=== PATIENT | female | born 1980 | race Caucasian/White ===

== ENCOUNTER → 2016-03-18 | Outpatient (CLI) | payer BC ==
[~2016-03-18] MED LIST: PRENTAB26 PO
[2016-03-18 09:40] LABS: BASO % 0.1 %; BASO ABS # 0.01 K/uL (0-0.2); COMPLETE YES; EOS % 0.6 %; HEMATOCRIT 36.5 % (37-47); IG% 0.1 %; LYMPH % 23.3 %; LYMPH ABS # 1.68 K/uL (1.2-3.4); MEAN CELL VOLUME 91.9 fL (80-100); MEAN CORPUSCULAR HEMOGLOBIN 31.5 pg (25-34); MEAN CORPUSCULAR HGB CONC 34.2 g/dl (32-36); MEAN PLATELET VOLUME 10.6 fL (7.4-10.4); MONO % 3.3 %; NEUT % 72.6 %; PLATELET COUNT 182 K/uL (130-400); RED BLOOD COUNT 3.97 M/uL (4.2-5.4)
[2016-03-18 10:08] LABS: GTGD 50 Grams
[2016-03-21 10:26] LABS: AFP CONCENTRATION 66.8 NG/ML; AFP MULTIPLE OF MEDIAN 1.06; AFPTS GESTATIONAL AGE 19.7 WEEKS; AFPTS INSULIN DEP DIABETIC? NO; AFPTS MATERNAL WT 120 LBS; ALPHA-FETOPROTEIN RACE CAUCASIAN=W; EDD DETERMINED BY ULTRASOUND; HISTORY OF NTD NO; INHIBIN A 86 PG/ML; INHIBIN A MOM 0.42; REPEAT SAMPLE? NO; hCG MULTIPLE OF MEDIAN 0.81
== END | disposition home or self-care (01) ==
LOC: C.LAB 07:45
PROVIDERS: ATTEND Obstetrics & Gynecology
DX: Z34.82 Encounter for supervision of other normal pregnancy, second trimester (principal)

== ENCOUNTER 2016-07-28 20:12 | Inpatient (IN) | payer BC ==
[~2016-07-28] VITALS: Ht 157.5 cm; Wt 65.5 kg
[2016-07-28] MEDS ORDERED: PRENTAB26 PO (20:48)
[2016-07-28 20:49] VITALS: Ht 157.5 cm; Wt 65.5 kg
[2016-07-28 21:47] LABS: HEMATOCRIT 37.7 % (37-47); MEAN CELL VOLUME 92.4 fL (80-100); MEAN CORPUSCULAR HEMOGLOBIN 30.9 pg (25-34); MEAN CORPUSCULAR HGB CONC 33.4 g/dl (32-36); MEAN PLATELET VOLUME 11.9 fL (7.4-10.4); PLATELET COUNT 166 K/uL (130-400); RED BLOOD COUNT 4.08 M/uL (4.2-5.4); WHITE BLOOD COUNT 7.55 K/uL (4.8-10.8)
[2016-07-28] MEDS ORDERED: LACTATED RINGER'S 1000ML 1,000 ML IV PRN (22:15)
[2016-07-28] MEDS ORDERED: LACTATED RINGER'S 1000ML 1,000 ML IV SCH (22:15)
[2016-07-28] MEDS ORDERED: NURSING VERBAL MED ORDER ONE (22:15)
[2016-07-29] MEDS ORDERED: BUPIVACAINE 0.25% 30 ML VIAL ONE (04:26)
[2016-07-29] MEDS ORDERED: EpHEDrine SULFATE INJ 50 MG/ML AMP ONE (04:26)
[2016-07-29] MEDS ORDERED: FENTANYL CITRATE INJ 50 MCG/1 ML 2 ML VIAL ONE (04:27)
[2016-07-29] MEDS ORDERED: FENTANYL 2MCG/ML ROPIV 1.25MG/ML 100ML BAG EPI ONE (04:27)
[2016-07-29] MEDS ORDERED: LACTATED RINGER'S 1000ML 500 ML IV PRN ×2 (05:09→05:27)
[2016-07-29] MEDS ORDERED: NALOXONE HCL INJ 1 MG in SODIUM CHLORIDE 0.9% 1000ML 1,000 ML IV PRN (05:09)
[2016-07-29] MEDS ORDERED: DiphenhydrAMINE HCL 50 MG/ML VIAL IV PRN (05:15)
[2016-07-29] MEDS ORDERED: ONDANSETRON INJ 2 MG/ML 2 ML VIAL IV PRN (05:15)
[2016-07-29] MEDS ORDERED: NALOXONE HCL INJ 0.4 MG/1 ML VIAL/CARP IV PRN (05:15)
[2016-07-29] MEDS ORDERED: EpHEDrine SULFATE INJ 50 MG/ML AMP IV PRN (05:15)
[2016-07-29] MEDS ORDERED: NALBUPHINE HCL INJ 10 MG/ML AMP IV PRN (05:15)
[2016-07-29] MEDS: FENTANYL 2MCG/ML ROPIV 1.25MG/ML 100ML BAG EPI PRN ×2 (05:30→06:59)
[2016-07-29] MEDS ORDERED: OXYTOCIN 30 UNITS/500ML NSS IV PRN ×2 (05:30→10:00)
[2016-07-29] MEDS ORDERED: LANOLIN OINT EXT PRN ×2 (10:00)
[2016-07-29] MEDS ORDERED: BENZOCAINE 20% AER SPR 82.5 GM CAN EXT PRN (10:00)
[2016-07-29] MEDS ORDERED: ACETAMINOPHEN 325 MG TAB PO PRN (10:00)
[2016-07-29] MEDS ORDERED: DIPHTHERIA/TETANUS/PERTUSSIS 0.5 ML SYR/VIAL IM. ONE (10:00)
[2016-07-29] MEDS ORDERED: HYDROCORTISONE ACETATE 25 MG SUPP PR PRN (10:00)
[2016-07-29] MEDS ORDERED: SUPERCREAM 0.870 % 15GM JAR EXT PRN (10:00)
[2016-07-29] MEDS ORDERED: ACETAMINOPHEN/CODEINE 300/30MG TAB PO PRN (10:00)
[2016-07-29] MEDS ORDERED: OXYCODONE/ACETAMINOPHEN 5-325 TAB PO PRN (10:00)
--- NOTE | 2016-07-29 10:15 | DELIVERY SUMMARY ---
DATE OF OPERATION: 07/29/2016 DATE OF DELIVERY: 07/29/2016. Mrs. Palencia is a 35-year-old 4, para 3 with one early spontaneous AB. Her general health is good. Blood type is B positive. Rubella immune. Vaginal beta strep negative. Due date 08/07/2016. She called the day prior to admission stating she thought she was in labor. She was having infrequent contractions, small bloody show and thought she might have been leaking fluid. She was told to come to the hospital where an AmniSure showed positive for leakage of fluid. She was then placed on the monitor; she walked around for a while. Contractions started to become harder. She requested no labor stimulation and in fact did go into labor on her own. Then she eventually went to epidural anesthesia. After the epidural anesthesia we augmented her contractions with Pitocin. She developed a good labor pattern and pushed out a live female infant via direct occiput anterior position over an intact perineum. Infant was suctioned through the mouth and the nose. Body was delivered without difficulty. Cord was clamped. Cord blood was taken. With IV Pitocin running, the placenta was removed intact and then a first degree laceration was repaired with 2-0 Vicryl. Vaginal mucosa was approximated out and to beyond the hymenal ring with 2-0 Vicryl. A deep suture of 2-0 Vicryl was used to approximate the bulbocavernosus muscles, 3 interrupted sutures used to approximate the perineal body and then a running subcuticular suture was used to approximate the perineal skin edges. Following this, vaginal exam including rectovaginal examination revealed no hematoma formation or stitches through the vagina. Estimated blood loss was 200 mL. The 1 and 5 minute Apgars were 8 and 9 respectively. I attest to the content of the Intraoperative Record and any orders documented therein. Any exception s are noted below.
[2016-07-29] MEDS: IBUPROFEN 600 MG TAB PO PRN ×4 (11:29→23:26)
[2016-07-29 12:35] VITALS: BP_SYST 114; BP_SYST 115; BP_DIAS 57; BP_DIAS 74; PULSE 73; PULSE 90; TEMP 36.5; O2SAT 97
[2016-07-29 15:15] VITALS: BP 108/69; PULSE 68; TEMP 36.5
[2016-07-29 19:10] VITALS: BP 119/72; PULSE 79; TEMP 36.3
[2016-07-29] MEDS: DOCUSATE SODIUM 100 MG CAP PO SCH (19:18)
[2016-07-29 23:40] VITALS: BP 99/62; PULSE 60; TEMP 36.4
[2016-07-30] MEDS: ACETAMINOPHEN/CODEINE 300/30MG TAB PO PRN ×3 (01:18→10:58)
[2016-07-30 07:15] VITALS: BP 92/58; PULSE 81; TEMP 36.7
[2016-07-30] MEDS ORDERED: PRENATAL VITAMIN TAB PO SCH (08:00)
[2016-07-30] MEDS ORDERED: FERROUS SULFATE 325 MG TAB PO SCH (08:00)
[2016-07-30] MEDS: DOCUSATE SODIUM 100 MG CAP PO SCH (08:48)
--- NOTE | 2016-07-30 09:57 | Progress Note ---
Subjective Jul 30, 2016. Subjective conversation w/ patient Ambulation: ambulating normally Voiding: no voiding problems Passing Gas: Yes Diet Tolerance: Regular Diet Lochia: Small Feeding Type: Breast Feeding Review of Systems Constitutional: + fever Objective Vital Signs Date Time Temp Pulse Resp B/P (MAP) Pulse Ox O2 Delivery O2 Flow Rate FiO2 07/30/16 07:15 Room Air 07/30/16 07:15 36.7 81 18 92/58 (69) Room Air 07/29/16 23:40 36.4 60 18 99/62 (74) Room Air 07/29/16 23:40 Room Air 07/29/16 19:10 36.3 79 16 119/72 (88) Room Air 07/29/16 15:15 Room Air 07/29/16 15:15 36.5 68 16 108/69 (82) Room Air 07/29/16 12:35 36.5 73 18 115/74 (88) 97 Room Air 07/29/16 12:35 97 Room Air 07/29/16 12:35 36.5 90 20 114/57 Physical Exam General Appearance: WELL-APPEARING Respiratory/Chest: lungs clear Abdomen: non tender Fundus: Firm, Non-Tender Extremities: no pedal edema, no calf tenderness Laboratory Results Last 24 Hours Test 07/30/16 07:10 Hemoglobin 12.2 g/dL Hematocrit 36.0 % Assessment and Plan Post- Day#: 1
--- NOTE | 2016-07-30 09:59 | Discharge Instructions ---
Discharge Instructions Date of Service Jul 30, 2016. Admission Reason for Admission: Check Ruptured Membranes Discharge Discharge Diagnosis / Problem: ruptured membranes term Discharge Goals Goal(s): Routine recovery after delivery Activity Recommendations Activity Limitations: as noted below ACTIVITY RECOMMENDATIONS: * Gradual return to full activity over the next 2-3 weeks. * No lifting - nothing heavier than baby over the next 2-3 weeks. * Do not engage in vigorous exercise, sexual activity or sports until cleared by your physician. * Do not drive or operate any motorized equipment until cleared by your physician. * You may shower/bathe daily. DIET: Resume Previous Diet If Breast-feeding: * Increase caloric intake by 500 calories, eat 3 well balanced meals, 2 high protein snacks a day and drink 6-8 8oz. glasses of fluid per day. BREAST CARE: If you are not breast feeding: * Wear a supportive bra 24 hours a day for one to two weeks. * Avoid stimulating your breasts and nipples as much as possible during the first few weeks after delivery. * When taking a shower, have the warm water hit your back, not breasts. * When your breasts feel full, apply ice packs. Usually three to four times a day helps ease the discomfort. * Take a mild pain medication (Tylenol / Motrin) when you are uncomfortable. If breast feeding: * Use breast milk to lubricate nipples. Lansinoh cream may be used for sore nipples. You do not need to remove cream prior to breast feeding. If using a different brand of cream, check the label for directions regarding removal of cream prior to nursing. * Wear a supportive bra. * If having problems with breasts or breast feeding, call a communication consultant or your health care provider. OVER THE COUNTER MEDICATION: * For discomfort or pain, you may use Acetaminophen (Tylenol), Ibuprofen (Advil ), or Naproxen (Aleve) following the package directions. * For constipation you may use Colace following the package directions. SPECIAL CARE INSTRUCTIONS: * Vaginal rest (no tampons, douching, intercourse) until after doctor 's visit. * control as discussed with doctor. * Verbalizes understanding of car seat law as reviewed with patient nursing. * Car Seat hand-out given and reviewed with patient by nursing. * Shaken baby information reviewed with patient by nursing. Call you doctor if: * Temperature greater than or equal to 100.4 degrees F or 38.0 degrees C. Take your temperature twice daily for a week. * Bleeding becomes heavier than the heaviest part of your period - saturating a sanitary pad within an hour. * Passing large clots. * Bleeding has a foul smelling odor. * Signs and symptoms of phlebitis: leg pain, warm, red or swollen area on leg. * "Baby Blues" lasting longer than two weeks. ++ If you have had a and incision has increased pain, redness, swelling, presence of any drainage, or if the incision starts to open up. If you have any questions or concerns, call your health care practitioner at [phone]. FOLLOW-UP VISIT: Please call the office at to schedule a 6 week examination. . Instructions / Follow-Up Instructions / Follow-Up ACTIVITY RECOMMENDATIONS: * Gradual return to full activity over the next 2-3 weeks. * No lifting - nothing heavier than baby over the next 2-3 weeks. * Do not engage in vigorous exercise, sexual activity or sports until cleared by your physician. * Do not drive or operate any motorized equipment until cleared by your physician. * You may shower/bathe daily. DIET: Resume Previous Diet If Breast-feeding: * Increase caloric intake by 500 calories, eat 3 well balanced meals, 2 high protein snacks a day and drink 6-8 8oz. glasses of fluid per day. BREAST CARE: If you are not breast feeding: * Wear a supportive bra 24 hours a day for one to two weeks. * Avoid stimulating your breasts and nipples as much as possible during the first few weeks after delivery. * When taking a shower, have the warm water hit your back, not breasts. * When your breasts feel full, apply ice packs. Usually three to four times a day helps ease the discomfort. * Take a mild pain medication (Tylenol / Motrin) when you are uncomfortable. If breast feeding: * Use breast milk to lubricate nipples. Lansinoh cream may be used for sore nipples. You do not need to remove cream prior to breast feeding. If using a different brand of cream, check the label for directions regarding removal of cream prior to nursing. * Wear a supportive bra. * If having problems with breasts or breast feeding, call a communication consultant or your health care provider. OVER THE COUNTER MEDICATION: * For discomfort or pain, you may use Acetaminophen (Tylenol), Ibuprofen (Advil ), or Naproxen (Aleve) following the package directions. * For constipation you may use Colace following the package directions. SPECIAL CARE INSTRUCTIONS: * Vaginal rest (no tampons, douching, intercourse) until after doctor 's visit. * control as discussed with doctor. * Verbalizes understanding of car seat law as reviewed with patient nursing. * Car Seat hand-out given and reviewed with patient by nursing. * Shaken baby information reviewed with patient by nursing. Call you doctor if: * Temperature greater than or equal to 100.4 degrees F or 38.0 degrees C. Take your temperature twice daily for a week. * Bleeding becomes heavier than the heaviest part of your period - saturating a sanitary pad within an hour. * Passing large clots. * Bleeding has a foul smelling odor. * Signs and symptoms of phlebitis: leg pain, warm, red or swollen area on leg. * "Baby Blues" lasting longer than two weeks. ++ If you have had a and incision has increased pain, redness, swelling, presence of any drainage, or if the incision starts to open up. If you have any questions or concerns, call your health care practitioner at [phone]. FOLLOW-UP VISIT: Please call the office at to schedule a 6 week examination. Current Hospital Diet Patient's current hospital diet: Regular Diet Discharge Diet Recommended Diet: Regular Diet Pending Studies Studies pending at discharge: no Medical Emergencies . Who to Call and When: Medical Emergencies: If at any time you feel your situation is an emergency, please call 911 immediately. . Non-Emergent Contact Non-Emergency issues call your: Acid Patroller Call Non-Emergent contact if: temperature is above 100.5 . . "Provider Documentation" section prepared by Ananda Machuca. . VTE Core Measure Inpt VTE Proph given/why not?: Treatment not indicated
[2016-07-30 14:17] VITALS: BP_DIAS 58; PULSE 81; TEMP 36.7
[2016-07-30] MEDS ORDERED: BISACODYL 5 MG TABEC PO SCH (20:00)
[2016-07-31] MEDS ORDERED: BISACODYL 10 MG SUPP PR PRN (07:00)
== END 2016-07-30 14:35 | disposition home or self-care (01) | DRG 775 ==
LOC: C.LD 20:12 → C.OPB 20:12 → C.LD 21:22 → C.OPB 21:22 → C.OBG 07-29 12:56
PROVIDERS: ADMIT Obstetrics & Gynecology; ATTEND Obstetrics & Gynecology
PROC: 10E0XZZ Delivery of Products of Conception, External Approach (ICD-10-PCS; principal; 2016-07-29)
PROC: 0HQ9XZZ Repair Perineum Skin, External Approach (ICD-10-PCS; principal; 2016-07-29)
DX: O70.0 First degree perineal laceration during delivery (principal); Z3A.38 38 weeks gestation of pregnancy; Z37.0 Single live birth